=== PATIENT | female | born 1940 | race Asian ===

== ENCOUNTER 2025-06-25 10:39 | Emergency (ER) | payer MEDICARE, OTHER ==
[~2025-06-25] VITALS: Ht 147.3 cm; Wt 61.4 kg
[~2025-06-25 10:39] MED LIST: ALLO100T PO; ATOR-427 PO; CALC1TAB15 PO; COLC-3 PO; DILT360C32 PO; LORA-366 PO; MULT1TAB70 PO
[2025-06-25 10:55] VITALS: TEMP 98
[2025-06-25] MEDS ORDERED: CIPR-515 PO (13:01)
[2025-06-25] MEDS ORDERED: BACI28.410 TP (13:01)
[2025-06-25] MEDS: CIPROFLOXACIN HCL 250 MG TABLET PO ONE (13:22)
[2025-06-25] MEDS: PERTUSS(ACELL),DIPH,TET/PF 0.5 ML SYRINGE [ADULT] IM. ONE (13:22)
[2025-06-25] MEDS: BACITRACIN 0.9 GM PACKET OINTMENT TP ONE (13:22)
[2025-06-25 13:30] VITALS: BP 131/52; PULSE 45; RESP 18; O2SAT 96
== END 2025-06-25 13:52 | disposition home or self-care (01) ==
LOC: EMS 10:46
DX: S61.452A Open bite of left hand, initial encounter (principal); I10 Essential (primary) hypertension; E78.00 Pure hypercholesterolemia, unspecified; Z88.1 Allergy status to other antibiotic agents; Z79.899 Other long term (current) drug therapy; W59.21XA Bitten by turtle, initial encounter; Y93.89 Activity, other specified; Y92.89 Other specified places as the place of occurrence of the external cause; Y99.9 Unspecified external cause status
CPT/HCPCS: 90471; 90715; 99283